=== PATIENT | female | born 1985 | race Caucasian/White ===

== ENCOUNTER 2022-06-03 09:45 | Outpatient (CLI) | payer MEDICAID, SELFPAY ==
[2022-06-04 09:43] LABS: Strep B DNA Probe NEGATIVE (Negative)
== END 2022-06-03 09:46 | disposition home or self-care (01) ==
LOC: LONREF 09:45
PROVIDERS: PCP Family Medicine; Visit Provider Obstetrics & Gynecology
DX: Z34.93 Encounter for supervision of normal pregnancy, unspecified, third trimester (principal); Z3A.36 36 weeks gestation of pregnancy
CPT/HCPCS: 87081; 87653

== ENCOUNTER 2022-06-10 10:47 | Outpatient (CLI) | payer MEDICAID, SELFPAY ==
--- NOTE | 2022-06-10 11:15 | CRLHL7_ITS ---
For Patients: As a result of the Century Cures Act, medical imaging exams and procedure reports are released immediately into your electronic medical record. You may view this report before your referring provider. If you have questions, please contact your health care provider. INDICATION: Third trimester scan, evaluate growth. VBACK AFTER CSECTION COMPARISON: none TECHNIQUE: Real time salgado scale imaging of the fetus was performed. FINDINGS: Sonographic imaging demonstrates a single living intrauterine gestation. Fetus demonstrates a regular cardiac rate of 138 beats per minute. Fetus has a vertex position. The placenta lies posteriorly. Amniotic fluid volume appears normal and there is a single deepest vertical pocket: 6.6 cm. The estimated weight is 3455gm which lies at the 73rd %. BPD 64th percentile. HC 92nd percentile. AC 79th percentile. FL 40th percentile. The HC/AC ratio measures 1.02 range (0.88-1.06). IMPRESSION: Sonographic gestational age 38 weeks 4 days and sonographic due date 06/20/2022. Sonographic age 5 days ahead of the clinical age. Estimated weight 73rd percentile. Abdominal circumference 79th percentile. Dictated by Kolton David MD @ 06/10/2022 12:27:13 PM (Electronically Signed)
== END 2022-06-10 10:48 | disposition home or self-care (01) ==
LOC: US 10:47
PROVIDERS: PCP Family Medicine; Visit Provider Obstetrics & Gynecology
DX: O34.219 Maternal care for unspecified type scar from previous cesarean delivery (principal); Z3A.38 38 weeks gestation of pregnancy
CPT/HCPCS: 76816

== ENCOUNTER 2022-06-18 05:40 | Inpatient (IN) | payer OTHER, MEDICAID, SELFPAY ==
[2022-06-18] VITALS (55 sets, daily range): BP systolic 85–131; BP diastolic 46–77; PULSE 46–98; RESP 18–20; TEMP 36–37.1; O2SAT 96–100
[2022-06-18] MEDS: LACTATED RINGERS 1000 ML 1,000 ML IV ×3 (06:15→08:51)
[2022-06-18] MEDS: fentaNYL 100 MCG/2 ML inj IVP (06:19)
--- NOTE | 2022-06-18 07:19 | P.ANBPRC_ITS ---
[facility], 1928–1983 Medical History (Updated 06/03/22 @ 12:44 by Lillian Altman MD) History of cholelithiasis History of migraine History of renal calculi Surgical History (Updated 06/01/22 @ 12:19 by Zara Valencia) History of section (01/2015) History of elbow surgery Status post hemorrhoidectomy Social History Smoking Status: Never smoker Meds Home Medications and Allergies Home Medications Medication Instructions Recorded Confirmed Type omega-3 fatty acids 312 mg-dha 250 cap PO 06/03/22 06/03/22 History mg-epa 18 mg capsule ([place] DHA) Allergies Allergy/AdvReac Type Severity Reaction Status Date / Time oxytocin Allergy Intermediate Stalling Verified 06/03/22 08:59 of labor venom-honey bee Allergy Mild Swelling Verified 06/03/22 08:59 ondansetron AdvReac Intermediate made Verified 06/03/22 08:59 veins feel like ice Pertussis Vaccine Allergy Unknown Uncoded 06/03/22 08:59 Percocet AdvReac Intermediate Gastrointestinal Uncoded 06/10/22 11:45 Upset Results Labs Labs: Laboratory Results - last 24 hr 06/18/22 06:00 Hgb 11.0 L Vital Signs Vital Signs: Last Vital Signs Pulse 91 06/18/22 07:13 BP 117/51 L 06/18/22 07:13 Pulse Ox 100 06/18/22 07:02 Anesthesia Procedures Epidural Insertion Patient Location: OB Start Time: 06:15 Stop Time: 07:15 Start Date: 06/18/22 Stop Date: 06/18/22 Reason for Block: procedure for pain Patient Position: sitting Performed By: Sarah Brewer Preanesthetic Checklist: IV checked, risks and benefits discussed, surgical consent, monitors and equipment checked, pre-op evaluation, timeout performed and anesthesia consent Prep: chlorhexidine gluconate Monitoring: blood pressure monitoring, continuous pulse oximetry and heart rate Approach: midline Vertebral Space: lumbar (1-5) Epidural Technique: PATTI saline Needle Type: Tuohy needle Injection Technique: continuous catheter (continuous catheter) Needle gauge: 17 Needle Length (cm): 10 cm Needle Insertion Depth (cm): 7 Catheter Gauge: 17 Catheter Type: multi-orifice Catheter at skin depth (cm): 15 Test Dose Result: negative and lidocaine 1.5% with epinephrine 1 to 200,000
--- NOTE | 2022-06-18 07:22 | W.PM.LDBA ---
Subjective History of Present Illness Time Seen by Provider: : Date Seen: 06/18/22 Narrative: Tari is a 37yo G11 P 3073 who began feeling strong contractions at 0200 today. She denies vaginal bleeding or discharge of watery fluid. Female fetus is at 39w 0d GA, her movement is normal. First baby born by ; subsequent and . She desires TOLAC. Fever last week, with subsequent positive Covid test. No respiratory symptoms. Stable mood, not taking anxiolytics. No other concerns. Her full history and physical was dictated by Dr. Altman on 06.03.2022; please see this for further details. OB - H&P: Exam Physical Exam: Vital signs: Pulse BP Pulse Ox 86 103/59 L 100 06/18/22 07:18 06/18/22 07:18 06/18/22 07:02 Constitutional: Constitutional: no acute distress and cooperative Routine HEENT Exam: Head: Present normal inspection Routine Neck Exam: Neck: Present full ROM Routine Respiratory Exam: Comments: Normal respirations. No nasal discharge, cough, or wheeze. Routine Cardiovascular Exam: Comments: Normal BP, rate. Routine Abdominal Exam: Comments: Gravid, size consistent with dates. Soft, nontender. Detailed Labor and Delivery Exam: Patient Gravid: yes Dilation (cm): 8 Effacement (%): 100 Cervix position: anterior Consistency: soft Tachysystole: No Contraction intensity: Strong/Firm Fetus (Single): Station: 0 Heart Rate Baseline: 125 Monitor Accelerations: Present Monitor Decelerations: None Senior Living Variability: Moderate (11-25) Routine Extremities Exam: Extremities: Present normal inspection Routine Neurological Exam: Present alert, CN II-XII intact and normal tone Routine Psychiatric Exam: Present normal affect and cooperative OB - Problem Based A/P Additional Plan (1) with history of section, antepartum: Problem details: Two VBACs. Plans TOLAC. Status: Acute (2) Late care: Status: Acute Plan: GBS negative. Rh positive. Rubella immune. Declines Tdap. Review remainder of lab panel. (3) Posttraumatic stress disorder: Problem details: Apparent good coping skills, family support. Status: Acute Plan: May have doxylamine if anxiety rises. Plan Admit to Center for TOLAC. OR team notified. Epidural. AROM. Anticipate vaginal after . Delivery/Labor/Induction Plan Induction method: AROM
[2022-06-18] MEDS: ROPIVACAINE 0.2% 100 ml 100 ML 12 MG EPIDURAL (07:34)
[2022-06-18] MEDS: PHENYLEPHRINE 100 MCG/ML SYRINGE IVP ×3 (07:44→08:40)
--- NOTE | 2022-06-18 08:30 | PM.OBPRCVD ---
Procedure Delivery date: 06/18/22 Procedure Done: Global Procedure Details: Tari is a 37yo admitted in active labor, dilated to 5cm. Prior x2; OR team in house. Epidural placed, with dense coverage. AROM accomplished; copious fluid with thin meconium. Quick progression to complete. Early decels with descent. Moderate maternal Vasalva. Viable vigorous female delivered in ALIZE postition. She was dried and stimulated, then placed on maternal chest. After 60 seconds, her cord was clamped and cut. Intact trivascular placenta delivered spontaneously. Vigorous fundal massage revealed very firm uterus; no clots expressed. Mother and baby stable in delivery room. Events: Previous , Meconium Stained Fluid, AMA and Covid Infection in Intrapartal Events: Labor Augmentation Delivery augmentation: rupture of membranes Delivery monitor: external FHT and external uterine Route of delivery: Laceration description: None Estimated blood loss (mL): 100 Anesthesia type: Epidural Disposition: no change Infant Gender: Female presentation: vertex Placental Delivery Description: Spontaneous Cord Description: 3 Vessels
[2022-06-18 09:00] LABS: Amphetamine Screen Urine Negative (Negative); Barbiturate Screen Urine Negative (Negative); Benzodiazepines Screen Urine Negative (Negative); Cannabinoid Screen Urine Negative (Negative); Cocaine Screen Urine Negative (Negative); Methadone Screen Urine Negative (Negative); Methamphetamines Screen Urine Negative (Negative); Opiate Screen Urine Negative (Negative); Oxycodone Screen Urine Negative (Negative); Phencyclidine Screen Urine Negative (Negative); Tricyclic Antidepressant Urine Negative (Negative)
[2022-06-18] MEDS: IBUPROFEN 600 MG TABLET PO ×2 (13:39→19:23)
[2022-06-18] MEDS: ACETAMINOPHEN 500 MG TABLET 1000 MG PO ×2 (16:08→22:16)
[2022-06-19 00:39] VITALS: BP 108/68; PULSE 66; RESP 18; TEMP 36.7; O2SAT 96
[2022-06-19 05:18] VITALS: BP 102/63; PULSE 68; RESP 16; TEMP 36.6; O2SAT 96
[2022-06-19 07:49] VITALS: BP 95/61; PULSE 76; RESP 16; TEMP 36.6; O2SAT 97
[2022-06-19] MEDS: DOCUSATE SODIUM 100 MG CAPSULE PO (08:39)
[2022-06-19] MEDS: ACETAMINOPHEN 500 MG TABLET 1000 MG PO (11:21)
--- NOTE | 2022-06-19 13:09 | PM.OBDSVD1 ---
DS: Providers Provider Time Seen by Provider: 13:09 Date Seen: 06/19/22 Date of admission: 06/18/22 05:40 Primary care physician: Zeus Perea MD Admitting Clinician: Jesus Bella MD Consults: 06/18/22 07:48 Consult to Medical Office Administrator [CONS] Routine Comment: Reason for Consult:: Substance Abuse Screening Attending Physician on discharge: Jesus Bella MD Date of Discharge: 06/19/22 DS: Diagnosis Discharge Diagnosis (1) Late care: Status: Acute Problem details[place] . Lives in [facility] (2) Vaginal after (): Status: Acute Problem details: uncomplicated of third daughter. (3) Posttraumatic stress disorder: Status: Acute Problem details: Apparent good coping skills, family support. (4) Acute hemorrhoid: Status: Acute Problem details: Use OTC perineal ointment. Add dietary fiber. Consume adequate fluids. Exam Const: Vital Signs, click to edit/add: Vital Signs - 24 hr 06/18/22 16:07 06/18/22 21:22 06/19/22 00:39 Temperature 98.6 F 98.5 F 98.1 F Pulse Rate [Pulse Oximeter] 65 68 66 Respiratory Rate 18 18 18 Blood Pressure [Le ft Arm] 103/63 96/58 L 108/68 Pulse Oximetry 97 97 96 06/19/22 05:18 06/19/22 07:49 Temperature 98 F 97.9 F Pulse Rate [Pulse Oximeter] 68 76 Respiratory Rate 16 16 Blood Pressure [Le ft Arm] 102/63 95/61 Pulse Oximetry 96 97 Documenting provider has reviewed patient's vital signs: yes Common normals: no apparent distress and well nourished General appearance: cooperative and comfortable Neck & C-Spine: Common normals: full ROM Resp: Common normals: normal respiratory effort, no retractions and no use of accessory muscles Effort & inspection: able to speak in complete sentences and actively coughing Cardio: Common normals: regular rate and peripheral pulses 2+ throughout Rate: regular rate Peripheral pulses: pulses 2+ throughout GI: Common normals: soft to palpation Palpation: soft Extremity: Common normals: normal to inspection, full ROM and no calf tenderness Neuro: Common normals: CN's II-XII intact bilaterally Psych: Common normals: thought process normal, cooperative and affect normal Thought process: normal thought process OB - DS: Summary Hospital Course Hospital Course: Tari is a 37 year old now para 3073 who was admitted to the Center on 06/18/22 for active labor, desiring TOLAC. She got an epidural and had an uncomplicated vaginal after , delivering a viable female at 39w0d GA. Lochia is moderate, without significant clots, and is decreasing. Bladder and bowel function are normal. She is coughing frequently after positive Covid test. Daughter is latching well, and will followup in [facility] in 2 days. Peripartum Data Infant delivery method: Laceration description: None [place] Gender: Female Discharge Plan: Home Time Spent with Patient Time attestation: Total time spent providing and/or coordinating discharge services: Time spent: Less than 30 minutes Discharge Plan Discharge Disposition: Home, Self-Care Date of Admission: 06/18/22 05:40 Attending Provider on Discharge: Jesus Bella Primary Care Provider: Zeus Perea Condition: Stable Anticipated Discharge Date/Time: 06/19/22 12:59 Discharge Medications: New acetaminophen 500 mg Tablet 1,000 mg PO Q6H PRNQty: 1 0RF docusate sodium 100 mg Capsule 100 mg PO DAILY Qty: 1 0RF ibuprofen 600 mg Tablet 600 mg PO Q6H PRNQty: 1 0RF Lanolin (HPA) 100 % Cream 1 applic topical Q1H PRNQty: 1 0RF wheat dextrin 3 gram/3.5 gram powder 1.5 g PO TID Qty: 256 6RF Rx Instructions: mix into at least 4 oz water or juice before administering Continued [place] Blue DHA 312-250-18 mg capsule PO 0RF hydrocortisone [Anusol-HC] 2.5 % cream with perineal applicator 1 applic IN BID-QID PRN (Reason: hemorrhoids) Qty: 30 1RF Discharge Orders: Discharge Order (Routine); Ordered 06/19/22 Ordered By: Jesus Bella Patient Education: OB Vaginal/Breast Feeding Activity Level: Activity as Tolerated Discharge Diet: High Fiber Follow Up Appointments[facility] [Provider Group[facility] - 08/01/22 Zeus Perea MD [Primary Care Provider] - Forms: MyHealth Info Instructions
== END 2022-06-19 14:30 | disposition home or self-care (01) | DRG 805 ==
LOC: OB 05:54
PROVIDERS: Admitting Provider Obstetrics & Gynecology; PCP Family Medicine; Visit Provider Obstetrics & Gynecology
DX: O34.211 Maternal care for low transverse scar from previous cesarean delivery (principal); U07.1 COVID-19; Z37.0 Single live birth; O98.52 Other viral diseases complicating childbirth; O87.2 Hemorrhoids in the puerperium; F43.10 Post-traumatic stress disorder, unspecified; O77.0 Labor and delivery complicated by meconium in amniotic fluid; Z3A.39 39 weeks gestation of pregnancy
CPT/HCPCS: 01967; 36415; 80306; 85018; 86850; 86900; 86901; 88307; 99213; A9270; J2370; J2795; J3010; J7120

== ENCOUNTER 2025-04-28 19:16 | Outpatient (CLI) | payer OTHER, SELFPAY ==
[2025-04-30 20:26] LABS: HPV Source Cervix; HPV, High Risk by TMA Not Detected
== END 2025-04-28 19:17 | disposition home or self-care (01) ==
PROVIDERS: PCP Family Medicine; Visit Provider Physician Assistant
DX: Z11.51 Encounter for screening for human papillomavirus (HPV) (principal); Z12.4 Encounter for screening for malignant neoplasm of cervix
CPT/HCPCS: 87624; 87625; 88141; 88142

== ENCOUNTER 2025-05-19 08:40 | Outpatient (CLI) | payer OTHER, SELFPAY | END 2025-05-19 08:41 | disposition home or self-care (01) | LOC: NFLDREF 05-20 15:35 | PROVIDERS: PCP Family Medicine; Referring Provider Family Medicine; Visit Provider Physician Assistant | DX: N92.0 Excessive and frequent menstruation with regular cycle (principal); L68.0 Hirsutism; F41.9 Anxiety disorder, unspecified; Z13.6 Encounter for screening for cardiovascular disorders; Z13.1 Encounter for screening for diabetes mellitus | CPT/HCPCS: 80061; 82627; 82947; 84403; 84443 ==